=== PATIENT | female | born 1965 | race Caucasian/White ===

== ENCOUNTER 2016-12-28 14:08 | Emergency (ER) | payer BC, OTHER ==
--- NOTE | ~2016-12-28 | CR282 ---
[facility] A Service of [facility] & [facility] RADIOLOGY TEXT RESULTS PATIENT: ALONDRA VARELA LOCATION: CFTX : 61 UNIT #: [id number] AGE: [address]: CHARANJIT LOMBARDI SEX: F ORDER DR: [id number] [facility] [address] [place], [place] [address] [id number] E MR#: [id number] Acc #: [id number] NAME: ALONDRA VARELA : 1965 SEX: F STUDY DATE/TIME: 12/28/2016 13:36 UNIT: [facility] ROOM: STUDY DESCRIPTION: CR Wrist Min 3 View Rt Attending Physician: Charanjit Lombardi Aprn Ordering Physician: Ed Wilman Riojas M.D. Primary Care Physician: No Primary Care Physician MEDICAL IMAGING REPORT This report is preliminary unless electronic signature is present EXAM Right wrist series 12/28/2016 HISTORY Pain after fall. Last night fell chair fell on top of arm. FINDINGS AP lateral oblique radiographs right wrist presented. Ring artifact over fourth digit. No traumatic fracture or malalignment. Joint spaces intact. No soft tissue defect, subcutaneous air or radiodense foreign body. If patient has ongoing symptoms consider follow up imaging. Dictated by... Fahad Motley M.D. THIS IS AN ELECTRONICALLY VERIFIED REPORT Fahad Motley M.D. at 12/30/2016 4:24 PM LALO/juan TD: 12/29/2016 04:48 JOB #: [id number] MEDICAL IMAGING REPORT COPY
--- NOTE | ~2016-12-28 | CR133 ---
[facility] A Service of [facility] & [facility] RADIOLOGY TEXT RESULTS PATIENT: ALONDRA VARELA LOCATION: CFTX : 61 UNIT #: [id number] AGE: [address]: CHARANJIT LOMBARDI SEX: F ORDER DR: [id number] [facility] [address] [place], [place] [address] [id number] E MR#: [id number] Acc #: [id number] NAME: ALONDRA VARELA : 1965 SEX: F STUDY DATE/TIME: 12/28/2016 13:34 UNIT: [facility] ROOM: STUDY DESCRIPTION: CR Forearm 2 View Rt Attending Physician: Charanjit Lombardi Aprn Ordering Physician: Jono Rijoas M.D. Primary Care Physician: No Primary Care Physician MEDICAL IMAGING REPORT This report is preliminary unless electronic signature is present EXAM Right forearm series 12/28/2016 HISTORY Pain. Fell last night. Chair fell on top of arm. Pain swelling bruising right forearm right wrist right hand. FINDINGS AP and lateral radiographs of the right forearm show ring artifact over fourth digit. Normal bony mineralization. No traumatic fracture or malalignment. Elbow and wrist joints grossly intact. No soft tissue defect, subcutaneous air or radiodense foreign body. Dictated by... Fahad Motley M.D. THIS IS AN ELECTRONICALLY VERIFIED REPORT Fahad Motley M.D. at 12/30/2016 4:24 PM LALO/juan TD: 12/29/2016 05:23 JOB #: [id number] MEDICAL IMAGING REPORT COPY
--- NOTE | ~2016-12-28 | CR142 ---
[facility] A Service of [facility] & [facility] RADIOLOGY TEXT RESULTS PATIENT: ALONDRA VARELA LOCATION: CFTX : 61 UNIT #: [id number] AGE: [address]: CHARANJIT LOMBARDI SEX: F ORDER DR: [id number] [facility] [address] [place], [place] [address] [id number] E MR#: [id number] Acc #: [id number] NAME: ALONDRA VARELA : 1965 SEX: F STUDY DATE/TIME: 12/28/2016 13:37 UNIT: [facility] ROOM: STUDY DESCRIPTION: CR Hand Min 3 Views Rt Attending Physician: Charanjit Lombardi Aprn Ordering Physician: Ed Wilman Riojas M.D. Primary Care Physician: No Primary Care Physician MEDICAL IMAGING REPORT This report is preliminary unless electronic signature is present EXAM Right hand series 12/28/2016 HISTORY Trauma. Fell. Chair fell on top of arm. Right hand forearm wrist pain. FINDINGS AP lateral oblique radiographs of the right hand are presented. Study degraded by ring artifact overlying the fourth digit. No traumatic fracture or malalignment. Mid shift proximal phalanx fourth digit cannot be evaluated secondary to overlying ring artifact. No definite soft tissue defect, subcutaneous air or radiodense foreign body. Joint spaces appear intact. Dictated by... Fahad Motley M.D. THIS IS AN ELECTRONICALLY VERIFIED REPORT Fahad Motley M.D. at 12/30/2016 4:24 PM LALO/juan TD: 12/29/2016 05:40 JOB #: [id number] MEDICAL IMAGING REPORT COPY
[~2016-12-28 14:08] MED LIST: ADVIL PM CAPLE1 EACH PO; CATAPRES0.1 MG PO; DAKIN'S MODIF1000 ML EXT; DAKIN'S473 M1 TOP; FLEXERIL10 MG PO; GABAPENTIN300 MG PO; HYDROCODON-ACE1 EAC9 PO; HYDROCODONE-APA1 T56 PO; IBUPROFEN800 MG PO; NICOTINE TRANSD14 MG EXT; PERCOCET 10/3251 TAB PO; PREMPRO; PROZAC PO; PROZAC40 MG PO; SANTYL15 G1 TP; VICODIN 5/1 TAB 5/50 PO; XANAX1 MG PO; ZYVOX600 MG PO
== END 2016-12-28 15:52 | disposition home or self-care (01) ==
LOC: CFTX 14:08
DX: S63.501A Unspecified sprain of right wrist, initial encounter (principal); S40.021A Contusion of right upper arm, initial encounter; E11.9 Type 2 diabetes mellitus without complications; Z91.09 Other allergy status, other than to drugs and biological substances; W19.XXXA Unspecified fall, initial encounter
CPT/HCPCS: 29260; 73090; 73110; 73130; 99284

== ENCOUNTER → 2017-06-05 | Outpatient (CLI) | payer OTHER ==
[2017-06-05 12:10] LABS: CHOLESTEROL 165 mg/dL (0-200); GLUCOSE FASTING 92 mg/dL (70-110); HDL CHOLESTEROL 45 mg/dL (35-95); LDL CHOLESTEROL 99 mg/dL (-130); LDL/HDL RATIO 2 RATIO (0-4); TRIGLYCERIDES 103 mg/dL (10-160)
== END | disposition home or self-care (01) ==
LOC: CLAB 10:37
PROVIDERS: Surgery
DX: Z01.812 Encounter for preprocedural laboratory examination (principal); E66.01 Morbid (severe) obesity due to excess calories
CPT/HCPCS: 36415; 80061; 82947